=== PATIENT | female | born 1965 ===

== ENCOUNTER 2024-04-25 15:58 | Emergency (ER) | payer BC, MEDICARE ==
--- OUTSIDE RECORDS SUMMARY | 2024-04-25 16:00 | XMS REPORT | Clinical Summary ---
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
[2024-04-25] MEDS ORDERED: ACETAMINOPHEN 650MG/RECT SUPP PR ONE ×2 (16:27→16:41)
[2024-04-25] MEDS ORDERED: ONDANSETRON 4 MG/2 ML VIAL ONE (16:27)
[2024-04-25] MEDS ORDERED: FENTANYL CITR 100 MCG/2 ML ONE ×2 (16:28→17:24)
[2024-04-25] MEDS ORDERED: NA CHLORIDE 0.9% 3,000 ML ONE (16:28)
[2024-04-25 16:36] LABS: Absolute Lymphocytes (CBC) 0.7 K/uL (0.7-4.9); Absolute Monocytes 0.1 K/uL (0.1-1.3); Basophils % 0.6 % (0-1.3); Eosinophils % 0.2 % (0-4.4); Hematocrit 36.7 % (36.0-45.0); Lymphocytes % 15.4 % (15.3-44.8); MCH 29.3 pg (27.0-35.0); MCHC 32.7 g/dL (32.0-36.0); MCV 89.7 fL (80-100); MPV 8.5 fL (7.6-11.3); Monocytes % 1.1 % (3.3-12.3); Neutrophils % 82.7 % (41.7-73.7); Platelets 250 thou/uL (152-406); RBC Red Blood Cell Count 4.09 M/uL (3.86-4.86); Red Cell Distribution Width 15.4 % (12.1-15.2)
[2024-04-25] MEDS ORDERED: IPRATROPIUM BROM 0.5MG/2.5ML ONE (16:40)
[2024-04-25 16:50] LABS: PT Prothrombin Time 13.1 SECONDS (9.4-12.5); PTT, Activated Partial Thromb 30.6 SECONDS (24.3-36.9); Protime INR 1.18
--- NOTE | 2024-04-25 16:58 | RAD REPORT ---
EXAMINATION: ONE VIEW CHEST XR CLINICAL INDICATION: Cough;Dyspnea TECHNIQUE: Frontal chest projection is submitted. Examination is limited by patient positioning and t echnique. COMPARISON: No prior exam. FINDINGS: Lungs are underinflated with bilateral pulmonary opacities noted. This may represent pulmonary edema or pneumonia. The heart is upper limit of normal in size. No displaced fractures identified.
[2024-04-25 17:03] LABS: Albumin 3.4 g/dL (3.4-5.0); Albumin/Globulin Ratio 0.6 (1.1-1.8); Alkaline Phosphatase 136 U/L (45-117); Anion Gap 16.6 mEq/L (5.0-15.0); BUN Blood Urea Nitrogen 19 mg/dL (7-18); Bicarbonate 19 mEq/L (21-32); Bilirubin Total 0.8 mg/dL (0.2-1.0); Globulin 5.5 g/dL (2.3-3.5); Glomerular Filtration Rate 37 ml/min (=/>90); Glucose Level 176 mg/dL (74-106); Potassium 3.6 mEq/L (3.5-5.1); Protein, Total 8.9 g/dL (6.4-8.2); Sodium Level 134 mEq/L (136-145); Troponin High Sensitivity 6.5 pg/mL (<58.9)
[2024-04-25 17:05] LABS: ALT/SGPT < 14 U/L (13-56); AST/SGOT < 10 U/L (15-37)
[2024-04-25 17:13] LABS: SARS-CoV-2 Antigen CONTROL BLUE LINE VIS/BG OK; SARS-CoV-2 Antigen Rapid Res Negative (Negative)
[2024-04-25] MEDS ORDERED: NA CHLORIDE 0.9% 250 ML ONE (17:24)
[2024-04-25] MEDS ORDERED: CEFTRIAXONE 1000 MG/VIAL ONE (17:24)
[2024-04-25] MEDS ORDERED: AZITHROMYCIN 500 MG INJ IVPB ONE (17:24)
--- NOTE | 2024-04-25 17:56 | RAD REPORT ---
EXAMINATION: CT ABDOMEN AND PELVIS UROGRAM WITHOUT AND WITH CONTRAST CLINICAL INDICATION: Fever;Flank pain TECHNIQUE: CT abdomen and pelvis was performed, before and after the administration of IV contrast, a s per department protocol. Axial, sagittal and coronal reconstructions were obtained. One or more of the following dose reduction techniques were used: Automated exposure control, adjustment of the m A and/or kV according to patient size, and/or iterative reconstruction. Unless otherwise specified, incidental findings do not require dedicated imaging follow-up. COMPARISON: No prior exam. FINDINGS: LOWER CHEST: Linear atelectasis is present in the right lung base. LIVER: Normal in size and contour. No focal lesion. No intra or extrahepatic biliary tree dilatation suspected. Cholelithiasis. SPLEEN: Normal size. No focal lesion. PANCREAS: No mass, ductal dilation, or vlad-pancreatic fluid. ADRENALS: Normal; no mass. KIDNEYS AND URETERS: 2 mm right UVJ stone is present causing moderate right hydronephrosis. No enhanc ing mass or filling defect within the renal pelvises. URINARY BLADDER: Normal in appearance. No suspicious mass or stone. GASTROINTESTINAL TRACT: No evidence of bowel obstruction, free air, significant free fluid or abscess . There is mild diverticulosis coli of the sigmoid colon without diverticulitis. APPENDIX: Normal appendix. LYMPH NODES: No lymphadenopathy. REPRODUCTIVE ORGANS: No pathologic process. MUSCULOSKELETAL: No acute or suspicious osseous abnormality. ADDITIONAL FINDINGS: Small fat-containing umbilical hernia. IMPRESSION: 2 mm stone right UVJ causing [id number] right-sided hydronephrosis. Cholelithiasis.
--- NOTE | 2024-04-25 18:04 | EDPHYS ---
Physician Documentation [facility] Name: Alessandra Ceballos Age: 59 yrs Sex: Female : 1965 Arrival Date: 04/25/2024 Time: 15:58 Bed 3 Private MD: ED Physician Barrington Rivas HPI: 04/25 16:11 This 59 yrs old Female presents to ER via Wheelchair with complaints of Low Back Pain, jh7 Vomiting. 16:11 59-year-old female with a past medical history of stage IV cervical cancer and jh7 hepatitis C presents to the ER for sudden onset right flank pain, shortness of breath, and nausea vomiting starting today. The patient reports that she had bilateral nephrostomy tubes taken out on 04/15. The patient's daughter reports that the nephrostomy tubes were placed due to the patient having a large tumor that was obstructing her ureter. Also reports productive cough for the past few days. They report that the patient's last chemotherapy session was last year.. Historical: - Allergies: 16:11 No Known Allergies; cm10 - PMHx: 16:11 CERVICAL CANCER; HEPATITIS C; cm10 - Immunization history:: Adult Immunizations up to date. - Infectious Disease History:: Denies. - Social history:: Smoking status: unknown. ROS: 16:11 Constitutional: Per HPI jh7 Exam: 16:11 Respiratory: mild respiratory distress is noted, Respirations: tachypnea, that is jh7 mild, Breath sounds: rales, are located in both bases, rhonchi, are scattered, 16:16 Head/Face: Normocephalic, atraumatic. Eyes: Pupils equal round and reactive to light, jh7 extra-ocular motions intact. Lids and lashes normal. Conjunctiva and sclera are non-icteric and not injected. Cornea within normal limits. Periorbital areas with no swelling, redness, or edema. Neck: Trachea midline, no thyromegaly or masses palpated, and no cervical lymphadenopathy. Supple, full range of motion without nuchal rigidity, or vertebral point tenderness. No Meningismus. Cardiovascular: Regular rate and rhythm with a normal S1 and S2. No gallops, murmurs, or rubs. Normal PMI, no JVD. No pulse deficits. Skin: Warm, dry with normal turgor. Normal color with no rashes, no lesions, and no evidence of cellulitis. MS/ Extremity: Pulses equal, no cyanosis. Neurovascular intact. Full, normal range of motion. Neuro: Awake and alert, GCS 15, oriented to person, place, time, and situation. Motor strength 5/5 in all extremities. Sensory grossly intact. Normal gait. 16:16 Constitutional: The patient appears alert, awake, diaphoretic, in obvious distress, moderately distressed, obviously ill, vomiting 16:16 Abdomen/GI: Inspection: abdomen appears normal, Bowel sounds: normal, Palpation: soft, nontender, 16:16 Back: CVA tenderness, that is moderate, is noted on the right, Vital Signs: 16:09 BP 143 / 74; Pulse 154; Resp 24; Temp 105.7(O); Pulse Ox 94% on R/A; Weight 93.89 kg; cm10 Pain 10/10; 16:30 BP 100 / 58; Pulse 111; Resp 21; Pulse Ox 96% on R/A; rs5 16:32 BP 109 / 65; Pulse 132; ec2 16:52 BP 100 / 61; Pulse 118; ec2 17:01 BP 102 / 62; Pulse 109; Resp 18; Pulse Ox 97% on R/A; rs5 17:20 Temp 102.8(O); rs5 17:30 BP 105 / 46; Pulse 116; Resp 19; Pulse Ox 97% on R/A; rs5 17:58 Temp 101.8(O); rs5 18:03 BP 98 / 50; Pulse 113; Resp 19; Pulse Ox 97% on R/A; rs5 18:44 BP 102 / 65; Pulse 111; Resp 18; Pulse Ox 92% on R/A; iw 19:00 BP 90 / 66; Pulse 114; Resp 20; Pulse Ox 96% on 2 lpm NC; lg3 19:15 BP 91 / 52; Pulse 111; Resp 19 S; Pulse Ox 96% on 2 lpm NC; lg3 19:30 BP 82 / 53; Pulse 78; Resp 21 S; Pulse Ox 96% on 2 lpm NC; lg3 19:45 BP 77 / 51; Pulse 109; Resp 21 S; Pulse Ox 97% on R/A; lg3 20:00 BP 103 / 74; Pulse 92; Resp 19 S; Pulse Ox 97% on 2 lpm NC; lg3 20:15 BP 105 / 68; Pulse 106; Resp 19 S; Pulse Ox 97% on 2 lpm NC; lg3 20:30 BP 110 / 67; Pulse 103; Resp 20 S; Pulse Ox 98% on 2 lpm NC; lg3 20:45 BP 124 / 68; Pulse 103; Resp 20; Temp 99.7(O); Pulse Ox 99% on 2 lpm NC; lg3 16:09 Pain Scale: Adult cm10 Procedures: 19:10 Central Line: the site was prepped with Betadine, in sterile fashion, a triple lumen [facility] catheter was inserted, in the left femoral vein, in 1 attempts. placement was verified, by blood return, the site was dressed with Tegaderm, using sterile technique, the patient tolerated the procedure, well. MDM: 16:01 Medical Screening Exam initiated [facility] 17:30 Post IV fluid administration reassessment for Sepsis: Client prescribed 30 mL/kg IVF. [facility] Sepsis focused reassessment complete. Focused Assessment performed: April 25, 2024 at 17:30 Heart: Regular rate/rhythm noted. Lungs: Rales noted. Capillary refill examination performed. Capillary refill noted to be < 2 seconds. Current vital signs reviewed: Yes. 18:05 Management of patient was discussed with the following: Master Tax Advisor: Dr. Jacobo Lucio urology. 18:05 Management of patient was discussed with the following: Hospitalist: Dr. Irving Lucio form builder at [facility]. Patient excepted for ICU transfer. Will place central line and initiate vasopressors prior to transfer. Patient stable at this time.. I considered the following discharge prescriptions or medication management in the emergency department Medications were administered in the Emergency Department. See MAR. Independent interpretation of the following test(s) in the Emergency Department EKG: See my EKG interpretation above X-Ray: My interpretation is bilateral pneumonia. Historians other than the Patient: Daughter/Son: daughter. Counseling: I had a detailed discussion with the patient and/or guardian regarding the historical points, exam findings, and any diagnostic results supporting the discharge/admit diagnosis, the need to transfer to another facility, [facility] not [facility] required specialist. Response to treatment: the patient's symptoms have mildly improved after treatment. 18:31 Differential diagnosis: Sepsis, pneumonia, UTI, ureterolithiasis, pyelonephritis, [facility] influenza, COVID, pulmonary edema. Data reviewed: vital signs, nurses notes, lab test result(s), EKG, radiologic studies, CT scan, plain films. Consideration of Admission/Observation Will transfer for required specialty and continuity of care. Care significantly affected by the following chronic conditions: Cancer. 04/25 16:12 Order name: Blood Culture Adult (2) [facility] 04/25 16:12 Order name: CBC with Diff; Complete Time: 16:59 [facility] 04/25 16:12 Order name: CMP; Complete Time: 17:19 [facility] 04/25 16:12 Order name: Lactate w/ 2H reflex if indic.; Complete Time: 17:02 [facility] 04/25 16:12 Order name: Protime (+inr); Complete Time: 16:53 [facility] 04/25 16:12 Order name: Ptt, Activated; Complete Time: 16:53 [facility] 04/25 16:12 Order name: Urinalysis w/ reflexes [facility] 04/25 16:12 Order name: Troponin High Sensitivity; Complete Time: 17:19 [facility] 04/25 16:12 Order name: Flu; Complete Time: 17:19 [facility] 04/25 16:12 Order name: SARS RAPID; Complete Time: 17:19 [facility] 04/25 19:00 Order name: Ghost Lactate-NO COLLECT Timer; Complete Time: 19:27 [facility] 04/25 20:08 Order name: Lactate Sepsis 2 HR Follow-up [facility] 04/25 20:25 Order name: Urine Culture [facility] 04/25 16:12 Order name: Chest Single View XRAY; Complete Time: 16:59 [facility] 04/25 16:12 Order name: CT Abd/Pelvis- W/WO Contrast; Complete Time: 17:57 [facility] 04/25 16:12 Order name: Accucheck; Complete Time: 16:57 [facility] 04/25 16:12 Order name: Cardiac monitoring; Complete Time: 16:57 [facility] 04/25 16:12 Order name: EKG - Nurse/Tech; Complete Time: 16:57 [facility] 04/25 16:12 Order name: IV Saline Lock - Large Bore; Complete Time: 16:57 [facility] 04/25 16:12 Order name: Labs collected and sent; Complete Time: 16:57 [facility] 04/25 16:12 Order name: O2 Per Protocol; Complete Time: 16:57 [facility] 04/25 16:12 Order name: O2 Sat Monitoring; Complete Time: 16:57 [facility] 04/25 16:12 Order name: Vital Signs; Complete Time: 16:57 [facility] 04/25 16:12 Order name: EKG - Nurse/Tech; Complete Time: 17:00 [facility] 04/25 18:14 Order name: Consent for central line completed; Complete Time: 20:08 [facility] 04/25 20:06 Order name: Kush; Complete Time: 20:06 lg3 EC:16 Rate is 142 beats/min. Rhythm is regular. QRS Pritchett is Normal. FL interval is normal. 7 QRS interval is normal. QT interval is normal. No Q waves. T waves are Normal. Clinical impression: Sinus tachycardia. Administered Medications: 16:15 Drug: Acetaminophen FL Suppository 650 mg FL once Route: FL; rs5 17:01 Follow up: Response: No adverse reaction; Temperature is decreased rs5 16:15 Drug: NS 0.9% IV (30 ml/kg) 30 ml/kg IV at bolus once; Sepsis Protocol; to be given as rs5 a bolus over 90 minutes Route: IV; Rate: bolus; Site: right antecubital; 16:30 Follow up: Response: No adverse reaction rs5 19:00 Follow up: Response: No adverse reaction; IV Status: Completed infusion; IV Intake: lg3 2816.7ml 16:20 Drug: Ondansetron IVP 4 mg IVP once; over 2 minutes Route: IVP; Site: right antecubital;rs5 16:40 Follow up: Response: No adverse reaction; Nausea is decreased rs5 16:20 Drug: fentaNYL (PF) IVP 50 mcg IVP once Route: IVP; Site: right antecubital; rs5 16:40 Follow up: Response: No adverse reaction; Pain is decreased rs5 16:37 Drug: Ipratropium Inhalation Aerosol 0.5 mg Inhalation once Route: Inhalation; rs5 17:01 Follow up: Response: No adverse reaction rs5 17:20 Drug: Rocephin IV 1 grams IV at 1 calculated rate once; Given slow IV push per pharmacy rs5 instructions Route: IV; Rate: 1 calculated rate; Site: right antecubital; 17:40 Follow up: Response: No adverse reaction rs5 19:34 Follow up: Response: No adverse reaction; IV Status: Completed infusion; IV Intake: [id number] 17:20 Drug: AZITHromycin IVPB 500 mg IVPB once over 1 hrs; (mix in 250 mL NS) Route: IVPB; rs5 Infused Over: 1 hrs; Site: right antecubital; 17:40 Follow up: Response: No adverse reaction rs5 19:00 Follow up: Response: No adverse reaction; IV Status: Completed infusion; IV Intake: lg3 250ml 17:30 Drug: fentaNYL (PF) IVP 25 mcg IVP once Route: IVP; Site: right antecubital; rs5 18:01 Follow up: Response: No adverse reaction; Pain is decreased rs5 20:00 Drug: Norepinephrine IV 0.1 mcg/kg/min IV at calculated rate Per protocol; (Standard lg3 concentration 4 mg / 250 mL D5W); Recommended max rate 3 mcg/kg/min; Titrate 0.05 mcg/kg/min as often as every 5 minutes to achieve goal (see titration policy); Goal parameter MAP greater than 65 mmHg. Route: IV; Rate: calculated rate; Site: left femoral; 20:48 Follow up: Response: No adverse reaction; Blood pressure is elevated; IV Status: lg3 Infusion continued upon transfer Disposition Summary: 04/25/24 18:04 Transfer Ordered Notes: Transfer Location: [place] [address] Reason: Higher level of care jh7 Condition: Fair jh7 Problem: new 7 Symptoms: are unchanged jh7 Accepting Physician: Dr. Irving(04/25/24 20:58) lg3 Diagnosis - Severe sepsis with septic shock jh7 - Pneumonia, unspecified organism jh7 - Hydronephrosis with renal and ureteral calculous obstruction 7 Forms: - Medication Reconciliation Form jh7 - SBAR form 7 Signatures: Dispatcher [employer] EDReyna Loja RN RN lg3 Nikkie Ibanez FNP FNP 7 Jose Muñoz RN RN rs5 Diana Singh RN RN cm10 Barrington Rivas MD MD ec2 Corrections: (The following items were deleted from the chart) 16:13 16:13 BLOOD CULTURE*+BA.LAB.BRZ ordered. EDMS EDMS 16:13 16:13 CBC+H.LAB.BRZ ordered. EDMS EDMS 16:13 16:13 COMPREHENSIVE METABOLIC PANEL+C.LAB.BRZ ordered. EDMS EDMS 16:13 16:13 LACTATE+C.LAB.BRZ ordered. EDMS EDMS 16:13 16:13 PROTIME (+INR)+COAG.LAB.BRZ ordered. EDMS EDMS 16:13 16:13 PTT, ACTIVATED+COAG.LAB.BRZ ordered. EDMS EDMS 16:13 16:13 Urinalysis+U.LAB.BRZ ordered. EDMS EDMS 16:13 16:13 Troponin High Sensitivity+C.LAB.BRZ ordered. EDMS EDMS 16:13 16:13 Influenza Screen (A \T\ B)+BA.LAB.BRZ ordered. EDMS EDMS 16:13 16:13 SARS-COV-2 Antigen Rapid+I.LAB.BRZ ordered. EDMS EDMS 16:13 16:13 Chest Single View+RAD.RAD.BRZ ordered. EDMS EDMS 16:13 16:13 Abdomen Pelvis W/Wo Con+CT.RAD.BRZ ordered. EDMS EDMS 16:36 16:11 Respiratory: jh7 jh7 16:36 16:34 Abdomen/GI: Inspection: abdomen appears normal, Bowel sounds: normal, Palpation: 7 soft, nontender, jh7 16:36 16:34 Back: CVA tenderness, that is moderate, is noted on the right, jh7 jh7 16:36 16:34 Constitutional: The patient appears alert, awake, diaphoretic, in obvious jh7 distress, moderately distressed, obviously ill, vomiting jh7 16:36 16:34 Head/Face: Normocephalic, atraumatic. Eyes: Pupils equal round and reactive to 7 light, extra-ocular motions intact. Lids and lashes normal. Conjunctiva and sclera are non-icteric and not injected. Cornea within normal limits. Periorbital areas with no swelling, redness, or edema. Neck: Trachea midline, no thyromegaly or masses palpated, and no cervical lymphadenopathy. Supple, full range of motion without nuchal rigidity, or vertebral point tenderness. No Meningismus. Cardiovascular: Regular rate and rhythm with a normal S1 and S2. No gallops, murmurs, or rubs. Normal PMI, no JVD. No pulse deficits. Skin: Warm, dry with normal turgor. Normal color with no rashes, no lesions, and no evidence of cellulitis. MS/ Extremity: Pulses equal, no cyanosis. Neurovascular intact. Full, normal range of motion. Neuro: Awake and alert, GCS 15, oriented to person, place, time, and situation. Motor strength 5/5 in all extremities. Sensory grossly intact. Normal gait. [facility] 18:30 18:04 accepting [place] [id number] 18:31 16:11 Respiratory: mild respiratory distress is noted, Respirations: tachypnea, that is 7 mild, Breath sounds: rhonchi, are scattered, [facility] 20:06 17:54 Currie ordered. [facility] lg3 20:58 18:30 Dr. Irving [facility] lg3
--- NOTE | 2024-04-25 18:04 | ER ---
Nurse's Notes [facility] Name: Alessandra Ceballos Age: 59 yrs Sex: Female : 1965 Arrival Date: 04/25/2024 Time: 15:58 Bed 3 Private MD: Diagnosis: Severe sepsis with septic shock;Pneumonia, unspecified organism;Hydronephrosis with renal and ureteral calculous obstruction Presentation: 04/25 16:09 Chief complaint: Patient's son or daughter states: LEFT SIDED FLANK PAIN WITH VOMITING cm10 ONSET THIS MORNING. PT HAD BILATERAL NEPHROSTOMY TUBES REMOVED ON 04/15. Coronavirus screen: Client denies travel out of the [place] in the last 14 days. Ebola Screen: Patient denies travel to an Ebola-affected area in the 21 days before illness onset. No symptoms or risks identified at this time. Initial Sepsis Screen: Does the patient meet any 2 criteria? RR > 20 per min. Temp <36.0*C (96.8*F)) or > 38.3*C (100.9*F). HR > 90 bpm. Yes Does the patient have a suspected source of infection? No. Patient's initial sepsis screen is negative. If YES to both, name of provider notified: Nikkie Ibanez BIOMEDICAL TECHNICIAN Risk Assessment: Do you want to hurt yourself or someone else? Patient reports no desire to harm self or others. Onset of symptoms was April 25, 2024. 16:09 Method Of Arrival: Wheelchair cm10 16:09 Acuity: ALDO 2 cm10 Triage Assessment: 16:11 General: Appears distressed, uncomfortable. Neuro: No deficits noted. Level of cm10 Consciousness is awake, alert, Oriented to person, place, time, situation, Appropriate for age. Historical: - Allergies: 16:11 No Known Allergies; cm10 - PMHx: 16:11 CERVICAL CANCER; HEPATITIS C; cm10 - Immunization history:: Adult Immunizations up to date. - Infectious Disease History:: Denies. - Social history:: Smoking status: unknown. Screenin:10 [facility] ED Fall Risk Assessment (Adult) History of falling in the last 3 months, rs5 including since admission No falls in past 3 months (0 pts) Confusion or Disorientation No (0 pts) Intoxicated or Sedated No (0 pts) Impaired Gait No (0 pts) Mobility Assist Device Used No (0 pt) Altered Elimination No (0 pt) Score/Fall Risk Level 0 - 2 = Low Risk Oriented to surroundings, Maintained a safe environment. Abuse screen: Denies threats or abuse. Nutritional screening: No deficits noted. Tuberculosis screening: No symptoms or risk factors identified. Assessment: 16:07 General: Appears distressed, uncomfortable, Behavior is cooperative. Pain: Complains of rs5 pain in left sided flank Pain currently is 9 out of 10 on a pain scale. Quality of pain is described as aching, Is continuous. 16:07 Neuro: Level of Consciousness is awake, alert, obeys commands, Oriented to person, rs5 place, time, situation. Cardiovascular: Patient's skin is warm and dry. Respiratory: Airway is patent Respiratory effort is even, labored, Respiratory pattern is symmetrical. GI: Abdomen is round non-distended, Abd is soft and non tender X 4 quads. Reports nausea, vomiting. : Reports urinary frequency. EENT: No signs and/or symptoms were reported regarding the EENT system. Derm: Skin is intact, Skin is pink, warm \T\ dry. Musculoskeletal: Range of motion: intact in all extremities. 16:08 General: CODE SEPSIS CALLED AT 1608. cm10 17:15 Reassessment: Patient and/or family updated on plan of care and expected duration. Pain rs5 level reassessed. Patient is alert, oriented x 3, equal unlabored respirations, skin warm/dry/pink. 18:01 Reassessment: Patient and/or family updated on plan of care and expected duration. Pain rs5 level reassessed. Patient is alert, oriented x 3, equal unlabored respirations, skin warm/dry/pink. Patient states feeling better. Patient states symptoms have improved. 18:41 Reassessment: Nikkie at bedside to set up for central line placement, [facility]. 18:45 Reassessment: Patient appears in no apparent distress at this time. Patient and/or iw family updated on plan of care and expected duration. Pain level reassessed. Dr. Rivas at bedside to assist with Central line. 19:00 General: provider at bedside for central line insertion. lg3 19:10 General: Appears in no apparent distress. comfortable, Behavior is calm, cooperative. lg3 Pain: Complains of pain in back Pain currently is 4 out of 10 on a pain scale. Quality of pain is described as aching. Neuro: No deficits noted. Muñoz Agitation-Sedation Scale (RASS): 0 - Alert and Calm Level of Consciousness is awake, alert, obeys commands, Oriented to person, place, time, situation. Cardiovascular: Denies chest pain, shortness of breath, Capillary refill < 3 seconds Clubbing of nail beds is absent JVD is absent Patient's skin is warm and dry. Respiratory: No deficits noted. Airway is patent Respiratory effort is even, unlabored, Respiratory pattern is regular, symmetrical. GI: Abdomen is round non-distended, obese, Abd is soft and non tender X 4 quads. : Reports inability to void, urinary frequency. EENT: No deficits noted. No signs and/or symptoms were reported regarding the EENT system. Derm: No deficits noted. No signs and/or symptoms reported regarding the dermatologic system. Skin is intact, is healthy with good turgor, Skin is dry, Skin is normal, Skin temperature is warm. Musculoskeletal: No deficits noted. Circulation, motion, and sensation intact. Range of motion: intact in all extremities. Vital Signs: 16:09 BP 143 / 74; Pulse 154; Resp 24; Temp 105.7(O); Pulse Ox 94% on R/A; Weight 93.89 kg; cm10 Pain 10/10; 16:30 BP 100 / 58; Pulse 111; Resp 21; Pulse Ox 96% on R/A; rs5 16:32 BP 109 / 65; Pulse 132; ec2 16:52 BP 100 / 61; Pulse 118; ec2 17:01 BP 102 / 62; Pulse 109; Resp 18; Pulse Ox 97% on R/A; rs5 17:20 Temp 102.8(O); rs5 17:30 BP 105 / 46; Pulse 116; Resp 19; Pulse Ox 97% on R/A; rs5 17:58 Temp 101.8(O); rs5 18:03 BP 98 / 50; Pulse 113; Resp 19; Pulse Ox 97% on R/A; rs5 18:44 BP 102 / 65; Pulse 111; Resp 18; Pulse Ox 92% on R/A; iw 19:00 BP 90 / 66; Pulse 114; Resp 20; Pulse Ox 96% on 2 lpm NC; lg3 19:15 BP 91 / 52; Pulse 111; Resp 19 S; Pulse Ox 96% on 2 lpm NC; lg3 19:30 BP 82 / 53; Pulse 78; Resp 21 S; Pulse Ox 96% on 2 lpm NC; lg3 19:45 BP 77 / 51; Pulse 109; Resp 21 S; Pulse Ox 97% on R/A; lg3 20:00 BP 103 / 74; Pulse 92; Resp 19 S; Pulse Ox 97% on 2 lpm NC; lg3 20:15 BP 105 / 68; Pulse 106; Resp 19 S; Pulse Ox 97% on 2 lpm NC; lg3 20:30 BP 110 / 67; Pulse 103; Resp 20 S; Pulse Ox 98% on 2 lpm NC; lg3 20:45 BP 124 / 68; Pulse 103; Resp 20; Temp 99.7(O); Pulse Ox 99% on 2 lpm NC; lg3 16:09 Pain Scale: Adult cm10 ED Course: 16:00 Patient arrived in ED. ra3 16:01 Nikkie Ibanez FNP is PHCP. jh7 16:01 Barrington Rivas MD is Attending Physician. 7 16:02 Jose Muñoz, JAIR is Primary Nurse. rs5 16:08 No provider procedures requiring assistance completed. Inserted saline lock: 20 gauge rs5 in right antecubital area, using aseptic technique. Blood collected. Flushed with 10 mL NS. 16:10 Patient has correct armband on for positive identification. Placed in gown. Bed in low rs5 position. Call light in reach. Side rails up X2. 16:11 Triage completed. cm10 16:11 Arm band placed on right wrist. Patient placed in an exam room, on a stretcher. cm10 16:20 Inserted saline lock: 22 gauge in right hand, using aseptic technique. rs5 16:38 Chest Single View XRAY In Process Unspecified. EDMS 17:49 CT Abd/Pelvis- W/WO Contrast In Process Unspecified. EDMS 18:01 initiated a transfer with Dior Hager from the [facility] transfer [facility]. eb 18:08 connected the urologist erection shop supervisor for [facility] with Nikkie Ramey for patient eb transfer consultation. 18:19 connected the biomedical engineering technologist erection shop supervisor for [facility] with Nikkie Ramey for patient eb transfer consultation. 18:23 administrative approval given by Dior Hager / patient has been accepted to [facility] Michaely 8 B 827/ Dr. Curt Irving has accepted the patient in transfer/ report to be called to [phone]. 19:10 Client placed on continuous cardiac and pulse oximetry monitoring. NIBP monitoring lg3 applied. youth nutritional monitor on. Door closed. Noise minimized. Warm blanket given. Pillow given. One-on-one care X 30 minutes. Family accompanied patient. 19:10 Assisted provider with central line placement. Set up central line tray. Triple lumen lg3 line placed in left femoral. Line placed by Nikkie Ibanez BIOMEDICAL TECHNICIAN Placement verified by blood return, Patient tolerated well. Patient \T\ family education about procedure, CLABSI prevention and S/S of infection? Yes. Time-out/Briefing performed prior to start of procedure? Yes. Was handwashing/sanitizing done immediately prior to procedure? Yes. Was patient positioned to in a way to prevent air embolism? Yes. Was procedure site sterilized? Yes, with chlorhexidine. Was the site allowed to dry? Yes. Was local anesthetic and/or sedation utilized? Yes. During the procedure, did the Practitioner(s) maintain a sterile field? Yes. Were unused ports clamped during insertion? Yes. Was a 2nd qualified MD obtained after 3 unsuccessful insertion attempts? No. Was blood aspirated from each lumen? Yes. After the procedure, did the Practitioner(s) clean the site and apply a sterile dressing? Yes. 20:06 Urinalysis w/ reflexes Sent. vk 20:07 Currie cath inserted, using sterile technique, 16 Fr., by inspector sheet metal parts, balloon inflated, to lg3 gravity drainage, urine specimen collected. Patient tolerated well. 20:43 Primary Nurse role handed off by Jose Muñoz RN cm10 20:53 Patient transferred, IV remains in place. lg3 Administered Medications: 16:15 Drug: Acetaminophen [place] Suppository 650 mg [place] once Route: [place]; rs5 17:01 Follow up: Response: No adverse reaction; Temperature is decreased rs5 16:15 Drug: NS 0.9% IV (30 ml/kg) 30 ml/kg IV at bolus once; Sepsis Protocol; to be given as rs5 a bolus over 90 minutes Route: IV; Rate: bolus; Site: right antecubital; 16:30 Follow up: Response: No adverse reaction rs5 19:00 Follow up: Response: No adverse reaction; IV Status: Completed infusion; IV Intake: lg3 2816.7ml 16:20 Drug: Ondansetron IVP 4 mg IVP once; over 2 minutes Route: IVP; Site: right antecubital;rs5 16:40 Follow up: Response: No adverse reaction; Nausea is decreased rs5 16:20 Drug: fentaNYL (PF) IVP 50 mcg IVP once Route: IVP; Site: right antecubital; rs5 16:40 Follow up: Response: No adverse reaction; Pain is decreased rs5 16:37 Drug: Ipratropium Inhalation Aerosol 0.5 mg Inhalation once Route: Inhalation; rs5 17:01 Follow up: Response: No adverse reaction rs5 17:20 Drug: Rocephin IV 1 grams IV at 1 calculated rate once; Given slow IV push per pharmacy rs5 instructions Route: IV; Rate: 1 calculated rate; Site: right antecubital; 17:40 Follow up: Response: No adverse reaction rs5 19:34 Follow up: Response: No adverse reaction; IV Status: Completed infusion; IV Intake: [id number] 17:20 Drug: AZITHromycin IVPB 500 mg IVPB once over 1 hrs; (mix in 250 mL NS) Route: IVPB; rs5 Infused Over: 1 hrs; Site: right antecubital; 17:40 Follow up: Response: No adverse reaction rs5 19:00 Follow up: Response: No adverse reaction; IV Status: Completed infusion; IV Intake: lg3 250ml 17:30 Drug: fentaNYL (PF) IVP 25 mcg IVP once Route: IVP; Site: right antecubital; rs5 18:01 Follow up: Response: No adverse reaction; Pain is decreased rs5 20:00 Drug: Norepinephrine IV 0.1 mcg/kg/min IV at calculated rate Per protocol; (Standard lg3 concentration 4 mg / 250 mL D5W); Recommended max rate 3 mcg/kg/min; Titrate 0.05 mcg/kg/min as often as every 5 minutes to achieve goal (see titration policy); Goal parameter MAP greater than 65 mmHg. Route: IV; Rate: calculated rate; Site: left femoral; 20:48 Follow up: Response: No adverse reaction; Blood pressure is elevated; IV Status: lg3 Infusion continued upon transfer Medication: 18:01 VIS not applicable for this client. rs5 Intake: 19:00 IV: 2817ml; Total: 2817ml. lg3 19:00 IV: 250ml; Total: 3067ml. lg3 19:34 IV: 10ml; Total: 3077ml. lg3 Outcome: 18:04 ER care complete, transfer ordered by MD. pozo 20:53 Transferred by ground EMS to [facility], Transfer form lg3 completed. X-rays sent w/ patient. 20:53 Condition: stable 20:53 Instructed on the need for transfer, Demonstrated understanding of instructions, 20:58 Patient left the ED. lg3 Signatures: Dispatcher [employer] EDMS Jesica Espinosa, JAIR ADAM iw Lisa Green Lacie, RN RN lg3 Nikkie Ibanez, BIOMEDICAL TECHNICIAN BIOMEDICAL TECHNICIAN 7 Jose Muñoz RN RN rs5 Diana Singh RN RN cm10 Kayla Mckeon ra3 Debbie Ponce Corrections: (The following items were deleted from the chart) 18:03 17:30 BP 98 / 50; Pulse 113bpm; Resp 19bpm; Pulse Ox 97% RA; rs5 rs5 20:16 19:30 BP 77 / 51; Pulse 109bpm; Resp 21bpm; Spontaneous; Pulse Ox 97% RA; lg3 lg3 20:16 20:00 BP 130 / 74; Pulse 92bpm; Resp 19bpm; Spontaneous; Pulse Ox 97% 2 lpm Nasal lg3 Cannula; lg3 20:57 20:45 BP 124 / 68; Pulse 103bpm; Resp 20bpm; Pulse Ox 99% 2 lpm Nasal Cannula; lg3 lg3
[2024-04-25] MEDS ORDERED: NOREPINEPHRINE BITARTRATE/D5W 4 MG/250 ML KIT IV ONE (19:48)
[2024-04-25 20:21] LABS: Specific Gravity > 1.030 (1.005-1.030); Sqamous Epithelial <5 /HPF (None Seen); Urine Bacteria <20 /HPF (<20); Urine Bilirubin NEGATIVE (Negative); Urine Blood 1+ (Negative); Urine Clarity Extremely Turbid (Clear); Urine Color Yellow (Yellow); Urine Crystals Unidentified Few /HPF (None Seen); Urine Culture Reflex Order REFLEXED; Urine Glucose 4+ (Over) (Negative); Urine Ketones NEGATIVE (Negative); Urine Microscopic Reflex YN ORDER UMIC; Urine Nitrite 1+ (Negative); Urine Protein 1+ (Negative); Urine Urobilinogen Normal (Normal); Urine WBC >50 /HPF (<5); Urine WBC Clump Occasional /HPF (None Seen); Urine Yeast (Budding) Occasional /HPF (None Seen); Urine pH 5.5 (5.0-7.0)
[2024-04-25 23:52] VITALS: BP 124/68; TEMP 99.7; O2SAT 99
--- NOTE | 2024-04-28 11:41 | EKG ---
Test Date: 2024-04-25 Test Time: 16:16:35 Reject Opener And Filler: ESS MEASUREMENT RESULTS: Intervals: Rate: 142 PA: 122 QRSD: 84 QT: 290 QTc: 446 [place]: P: -17 PA: 122 QRS: 29 T: 77 INTERPRETIVE STATEMENTS: Sinus tachycardia Nonspecific ST abnormality Abnormal ECG No previous ECG available for comparison Electronically Signed On 04-28-24 11:35:09 AUTOMATION ARCHITECT by Adrian Coulter
== END 2024-04-25 20:58 | disposition short-term general hospital (02) ==
LOC: ER 15:58
DX: J18.9 Pneumonia, unspecified organism (principal); R65.21 Severe sepsis with septic shock; N13.2 Hydronephrosis with renal and ureteral calculous obstruction; Z11.52 Encounter for screening for COVID-19; Z85.41 Personal history of malignant neoplasm of cervix uteri
CPT/HCPCS: 36415; 36556; 51702; 71045; 74178; 80053; 81001; 83605; 84484; 85025; 85610; 85730; 87040; 87077; 87086; 87088; 87186; 87205; 87804; 87811; 93005; 99285; J0696; J2405; J3010; J7030; J7050; J7644; Q9967